=== PATIENT | male | born 1995 | race Caucasian/White ===

== ENCOUNTER → 2023-02-07 | Outpatient (CLI) | payer OTHER ==
[2023-02-07 11:13] LABS: PLATELET COUNT, AUTOMATED 238 10^3/uL (150-450)
[2023-02-07 11:28] LABS: INR 1.09; PROTHROMBIN TIME 13.7 SECONDS (12.5-14.5)
[2023-02-07 11:29] LABS: PARTIAL THROMBOPLASTIN TIME 27.4 SECONDS (24.8-34.2)
[2023-02-07 11:30] LABS: COLLAGEN EPINEPHRINE 115 SECONDS (74-162)
== END ==
LOC: M LAB 10:42
PROVIDERS: ATTEND Physical Medicine & Rehabilitation
DX: Z01.818 Encounter for other preprocedural examination (principal)

== ENCOUNTER → 2023-07-27 | Outpatient (REF) | LOC: M PLAIMG 08:42 | PROVIDERS: ATTEND Internal Medicine | DX: R52 Pain, unspecified (principal) ==